=== PATIENT | male | born 2000 | race Two or more races ===

== ENCOUNTER 2025-05-18 19:39 | Emergency (ER) | payer MEDICAID ==
[~2025-05-18] VITALS: Ht 165.1 cm; Wt 72.6 kg
[2025-05-18] MEDS ORDERED: TDAP [DIPH/PERTUSSIS/TET] 0.5 ML VIAL IM ONE (21:16)
[2025-05-18] MEDS: TDAP [DIPH/PERTUSSIS/TET] 0.5 ML VIAL IM ONE (21:18)
[2025-05-18 21:28] VITALS: BP 125/69; TEMP 98.3; O2SAT 99
[2025-05-18] MEDS ORDERED: MUPI1OIN5 TP (21:41)
== END 2025-05-18 22:24 | disposition home or self-care (01) ==
LOC: ER 19:41
DX: S61.111A Laceration without foreign body of right thumb with damage to nail, initial encounter (principal); W23.1XXA Caught, crushed, jammed, or pinched between stationary objects, initial encounter; Y93.H1 Activity, digging, shoveling and raking; Y92.89 Other specified places as the place of occurrence of the external cause; Y99.8 Other external cause status
CPT/HCPCS: 73130-TC; 90715